=== PATIENT | female | born 1975 | race Caucasian/White ===

== ENCOUNTER 2017-10-04 06:54 | Emergency (ER) | payer OTHER ==
[~2017-10-04] VITALS: Ht 144.8 cm; Wt 52.2 kg
[~2017-10-04 06:54] MED LIST: IBUP-232 PO; Z.0.NO CURRENT MEDS; ZOFR4TAB3 SL
[2017-10-04 07:02] VITALS: BP 103/59; PULSE 79; RESP 16; TEMP 98.3; O2SAT 98
[2017-10-04 07:10] VITALS: BP 103/59; PULSE 79; RESP 16; TEMP 98.3; O2SAT 98
--- NOTE | 2017-10-04 07:13 | PD ---
HPI Chief Complaint: Cold / Flu Symptoms Time Seen by Provider: 07:05 Travel History International Travel<30 days: No Contact w/Intl Traveler<30days: No Traveled to known affect area: No History of Present Illness HPI 41yo F with no significant PMH presents to the ED with c/o productive cough since yesterday. Some nasal congestion. Pt thinks she has bronchitis because her daughter was recently diagnosed with bronchitis and given antibiotics. Denies any fever, chest pain, sob, n/v, abdominal pain, focal weakness or numbness. Pt is a cig smoker. PFSH Past Medical History Blood Disorders: Yes (ANEMIA) Cardiovascular Problems: No Endocrine: No Genitourinary: No Immune Disorder: No Musculoskeletal: No Neurologic: No Reproductive: No Respiratory: No : 4 Para: 4 Tubal Ligation: Yes Past Surgical History Section: Yes (X4) Gynecologic Surgery: Yes (,TUBAL LIGATION) Social History Alcohol Use: No Tobacco Use: Yes (1PPD) Substance Use: No Allergies-Medications (Allergen,Severity, Reaction): Coded Allergies: No Known Allergies (Verified , 05/23/11) Reported Meds & Prescriptions Reported Meds & Active Scripts Active No Active Prescriptions or Reported Medications Review of Systems Except as stated in HPI: all other systems reviewed are Neg Physical Exam Narrative GENERAL: 41yo F in mild distress. SKIN: Focused skin assessment warm/dry. HEAD: Atraumatic. Normocephalic. EYES: Pupils equal and round. No scleral icterus. No injection or drainage. ENT: No nasal bleeding or discharge. Mucous membranes pink and moist. NECK: Trachea midline. No JVD. CARDIOVASCULAR: Regular rate and rhythm. No murmur appreciated. RESPIRATORY: No accessory muscle use. Expiratory wheezing bilaterally. GASTROINTESTINAL: Abdomen soft, non-tender, nondistended. MUSCULOSKELETAL: No obvious deformities. No clubbing. No cyanosis. No edema. NEUROLOGICAL: Awake and alert. No obvious cranial nerve deficits. Motor grossly within normal limits. Normal speech. PSYCHIATRIC: Appropriate mood and affect; insight and judgment normal. Data Data Last Documented VS Vital Signs Date Time Temp Pulse Resp B/P (MAP) Pulse Ox O2 Delivery O2 Flow Rate FiO2 10/04/17 07:15 16 98 Room Air 10/04/17 07:10 98.3 79 103/59 (74) Orders Orders Albuterol-Ipratropium Neb (Duoneb Neb) (10/04/17 07:15) Guaifen-Cod 200-20 Mg/10ml Liq (Robituss (10/04/17 07:15) Chest, Single Ap (10/04/17 ) MDM Medical Decision Making Medical Screen Exam Complete: Yes Emergency Medical Condition: Yes Differential Diagnosis URI vs. bronchitis vs. pneumonia Narrative Course 41yo F with cough since last night. Pt has mild wheezing and is a smoker so given one duonebs. Pt also given robitussin. Reevaluated at bedside and said the coughing did improve. CXR negative for acute intrathoracic disease. O2 sat is 98% on RA. Lungs are now clear to auscultation bilaterally. Pt is insistent on antibiotics and since she is a cig smoker, can cover with azithromycin. She is well appearing. Return precautions given. Diagnosis Primary Impression: Bronchitis Patient Instructions: General Instructions Departure Forms: Tests/Procedures Additional Instructions: Please follow up with your primary care physician in 2-3 days. Return to the ED if symptoms worsen. Med/Other Pt SpecificInfo: Prescription(s) given Scripts Albuterol 18 GM Inh (Ventolin Hfa 18 GM Inh) 90 Mcg/Act Aer 2 PUFF INH Q4H Y for SHORTNESS OF BREATH, #1 INHALER 0 Refills Prov: Alaina Shepherd DO 10/04/17 Azithromycin (Zithromax Z-Calixto) 250 Mg Dspk 250 MG PO DIRECTED for Infection, #1 DSPK 0 Refills 500 MG (2 tabs) day 1, then 1 tab days 2-5. Prov: Alaina Shepherd DO 10/04/17 Disposition: 01 DISCHARGE HOME Condition: Stable Alaina Shepherd DO October 04, 2017 07:12
[2017-10-04] MEDS ORDERED: guaiFENesin/CODEINE SYRUP 200 MG/20 MG/10 ML CUP PO ONE (07:15)
[2017-10-04] MEDS ORDERED: RESP: ALBUTEROL 2.5 MG/IPRATROPIUM 0.5 MG NEB (SCH) INH ONE (07:15)
--- NOTE | 2017-10-04 07:32 | RADRPT ---
EXAM DATE: 10/04/2017 7:28 AM EDT AGE/SEX: 41 years / Female INDICATIONS: Cough with chest pain CLINICAL DATA: This is the patient's initial encounter. Patient reports that signs and symptoms have been present for 1 day and indicates a pain score of 4/10. MEDICAL/SURGICAL HISTORY: None. None. COMPARISON: No prior [facility] exams available for comparison. FINDINGS: A single AP view of the chest demonstrates the lungs to be symmetrically aerated without evidence of mass, infiltrate or effusion. Chronic pleural thickening in both apices. Small granuloma in the righ t upper lung. There is hyperaeration bilaterally. The cardiomediastinal contours are unremarkable. O sseous structures are intact. CONCLUSION: No acute intrathoracic disease. Electronically signed by: Darin Lord MD 10/04/2017 7:31 AM EDT
[2017-10-04] MEDS ORDERED: ZITHTAB PO (08:04)
[2017-10-04] MEDS ORDERED: VENTAER INH (08:04)
== END 2017-10-04 08:16 | disposition home or self-care (01) ==
LOC: PHED 06:54
DX: J40 Bronchitis, not specified as acute or chronic (principal); F17.200 Nicotine dependence, unspecified, uncomplicated; D64.9 Anemia, unspecified; F17.210 Nicotine dependence, cigarettes, uncomplicated
CPT/HCPCS: 71045; 94664; 99283